=== PATIENT | female | born 1960 | race Caucasian/White ===

== ENCOUNTER 2016-12-23 11:30 | Inpatient (IN) ==
[2016-12-23] MEDS ORDERED: Sodium Chloride 0.9% 1,000 ML PRIMARY IV ONE (12:08)
[2016-12-23] MEDS ORDERED: NORMAL SALINE 10 ML SYRINGE FLUSH IVP PRN ×2 (12:08→14:55)
--- NOTE | 2016-12-23 12:14 | EKG ---
[address] [place] [address] Measurements Intervals [place] Rate: 99 P: MN: 0 QRS: -48 QRSD: 134 T: 98 QT: 382 QTc: 438 Interpretive Statements POSSIBLE ATRIAL FLUTTER/TACHYCARDIA INTRAVENTRICULAR CONDUCTION DELAY [130+ ms QRS DURATION] LEFT VENTRICULAR HYPERTROPHY AND ST-T CHANGE [VOLTAGE CRITERIA PLUS ST/T ABNORMALITY] POSSIBLE ANTERIOR MYOCARDIAL INFARCTION [30 ms Q WAVE IN V3/V4, OR R < 0.2 mV IN V4], OF INDETERMINATE AGE No previous ECG available for comparison Electronically Signed On 12-25-16 08:42:20 MST by Milton Arana MD [email or web address]
[2016-12-23 12:37] LABS: Hemoglobin [HGB] 11.9 g/dL (12.0-16.0); MEAN CORPUSCULAR HEMOGLOBIN 28.7 PG (27-31); MEAN CORPUSCULAR HGB CONC 33.1 g/dL (33-37); MEAN CORPUSCULAR VOLUME 86.7 FL (81-99); MEAN PLATELET VOLUME 11.1 FL (7.4-12.2); RED BLOOD COUNT 4.15 10^6/uL (4.20-5.40)
[2016-12-23 12:39] LABS: VENOUS PH 7.34 (7.32-7.42)
[2016-12-23 12:41] LABS: BLOOD UREA NITROGEN 31 mg/dL (7-22); BUN/CREATININE RATIO 14.09 (6-20); MAGNESIUM 1.6 mg/dL (1.6-2.4); SERUM ALBUMIN 3.5 g/dL (3.5-4.8)
[2016-12-23 12:50] LABS: BAND NEUTROPHILS % 1 % (0-10); BASOPHILS % (MANUAL) 0 % (0-1); EOSINOPHILS % (MANUAL) 1 % (0-8); MONOCYTES % (MANUAL) 7 % (0-12); NEUTROPHILS % (MANUAL) 83 % (50-80); PLATELET MORPHOLOGY COMMENT NORMAL MORPHOLOGY (NORM); RBC MORPHOLOGY COMMENT NORMAL MORPHOLOGY (NORM); WBC MORPHOLOGY COMMENT NORMAL MORPHOLOGY (NORM)
--- NOTE | 2016-12-23 13:11 | DI ---
Exam: FILM CXR Chest PA and lateral views INDICATION: Altered mental status COMPARISON: Chest radiograph 01/12/13 FINDINGS: The cardiomediastinal silhouette is within normal limits. Lungs are clear. No pleural effusions. Bony elements are within normal limits for age. No acute osseous abnormality. IMPRESSION: No acute cardiopulmonary disease. Lungs are clear. Heart size normal.
--- NOTE | 2016-12-23 13:13 | DI ---
Exam: CT HEAD Without Contrast INDICATION: Altered mental status TECHNIQUE: Multiple, contiguous 5 mm axial cuts of the brain are obtained from the posterior fossa to the cranial vault. No IV contrast is administered. COMPARISON: CT head 10/22/11 FINDINGS: No acute intracranial hemorrhage or midline shift or mass effect. No acute cortical infarct by CT exam. Caliber of the ventricles, cisterns and sulci are within normal limits. Tompkins-white differentiation is maintained. No skull fractures. The visualized portions of the paranasal sinuses are clear aside from moderate opacification right sphenoid sinus as on prior exam.. Visualized mastoid air cells are clear. IMPRESSION: 1. No acute intracranial hemorrhage or acute intracranial process. 2. Moderate opacification of the right sphenoid sinuses again noted.
[2016-12-23 13:47] LABS: BILIRUBIN,URINE NEGATIVE (NEG); CLARITY,URINE CLEAR (CLEAR); COLOR,URINE YELLOW; NITRATE,URINE NEGATIVE (NEG); OCCULT BLOOD,URINE NEGATIVE (NEG); PROTEIN,URINE NEGATIVE (NEG); UROBILINOGEN,URINE 0.2 mg/dL (0.2)
[2016-12-23] MEDS ORDERED: LIDOCAINE HCL 2 % 10 ML JELLY URO-JECT TOPICAL PRN (13:50)
[2016-12-23 13:55] LABS: GLUCOSE, URINE (UA) >=1000 mg/dL (NEG); SQUAMOUS EPITHELIAL CELL,UR RARE; URINE SAMPLE TYPE CATH SPECIMEN
[2016-12-23 13:56] LABS: BACTERIA,URINE MODERATE
[2016-12-23 13:56] LABS: AMPHETAMINE SCREEN NEGATIVE (NEG); CANNABINOID SCREEN,URINE NEGATIVE (NEG); COCAINE SCREEN NEGATIVE (NEG); METHADONE URINE SCREEN NEGATIVE (NEG); METHAMPHETAMINES SCREEN,URINE NEGATIVE (NEG); OPIATE SCREEN,URINE NEGATIVE (NEG); URINE SAMPLE TYPE CATH SPECIMEN; URINE SPECIFIC GRAVITY - MAN 1.015
[2016-12-23] MEDS ORDERED: cefTRIAXone Inj 1 GM in Sodium Chloride 0.9% 100 ML IV ONE (14:16)
[2016-12-23] MEDS ORDERED: Glucagon Inj Vial 1 MG/ML VIAL IM PRN (14:55)
[2016-12-23] MEDS ORDERED: Insulin Sliding Scale Protocol SUBCUT PRN (14:55)
[2016-12-23] MEDS ORDERED: DEXTROSE 31 GM GEL PO PRN (14:55)
[2016-12-23] MEDS ORDERED: LIDOCAINE W/ SODIUM BICARB 0.5 ML SYR SUBD PRN (14:55)
[2016-12-23] MEDS ORDERED: DEXTROSE 50%-WATER SYRINGE 50 ML SYRINGE IVP PRN (14:55)
[2016-12-23] MEDS ORDERED: Insulin Glargine SoloStar Inj 100 UNIT/ML INSULN.PEN SUBCUT SCH (16:00)
[2016-12-23] MEDS: cefTRIAXone Inj 2 GM in Sodium Chloride 0.9% 100 ML IV SCH (16:44)
[2016-12-23] MEDS: Sodium Chloride 0.9% 1,000 ML IV SCH (17:17)
[2016-12-23] MEDS: Insulin Lispro Flexpen 300 UNIT/3 ML INSULN.PEN SUBCUT SCH ×2 (17:37→21:10)
--- NOTE | 2016-12-23 19:23 | PDOC ---
Altered Mental Status HPI - General Chief Complaint: Neurological Complaints Stated Complaint: altered mental status Date Seen by Provider: 12/23/16 Time Seen by Provider: 11:40 Source: POSITIVE: Patient, Spouse Exam Limitations: POSITIVE: No limitations Nurse's Notes Reviewed & Considered: Yes - History of Present Illness Initial Comments: The patient is a 56-year-old female who was brought to the emergency room by her . states that 2 days ago the patient had a "chemical cardiac stress test ". She states that later on that day the patient "fell in the bathroom". He states that for the last 24-30 hours the patient has been "falling asleep constantly ". He states that since yesterday the patient has been "incoherent, and staying in bed all day. The patient has reportedly been in bed for over 24 hours. The patient's states that the patient has not been able to get out of bed without his help. states that patient has had "mini strokes" in the past. Patient has a history of chronic neck and back pain and has had surgical procedures for these. states the patient has not eaten in the last 48 hours. History of PTSD. History of type II diabetes mellitus on insulin. History of hypertension. Past history of prescription narcotic dependency. Body Location Affected: REPORTS: Other (Weakness, confusion,) Timing: REPORTS: Gradual Duration: >24 hours (2 days, approximately) Severity: Moderate Quality: REPORTS: Other (Patient denies any pain anywhere) Character of AMS: REPORTS: Confused, Trouble Concentrating, Decreased Responsiveness, Other (Somnolent 6) New Medications (if yes, list): No Patient Normals: REPORTS: Alert, Oriented x3 Associated Symptoms: REPORTS: Other (Generalized weakness). DENIES: Recent Illness, Fever, Chills, Chest Pain, Neck Pain, Back Pain, Difficulty Breathing, Abdominal Pain, Nausea, Vomiting, New Onset Weakness, Decreas. Ability to Stand , Decreased Ability to Walk, Multiple Falls, Off Balance, Fainting, Dizziness, Involuntary Movements, Seizure, Headache Similar Symptoms Previously: Yes ( reports 2 or 3 similar episodes in the past) Recent Care Received: REPORTS: Recently Seen, Treated by MD (Cardiac stress test as above) Any Prior Injuries Related to Current Complaint?: Yes (fell in the bathroom a day or 2 ago) - Patient Home Medications Home Medications: Home Medications Aspirin [Adult Low Dose Aspirin EC] 162 mg PO DAILY 02/19/12 Cyclobenzaprine HCl [Flexeril] 10 mg PO TID PRN 02/19/12 Famotidine 20 mg PO BID 02/19/12 Gabapentin 600 mg PO TID 02/19/12 Glipizide [Glipizide Er] 2.5 mg PO DAILY 02/19/12 Insulin Aspart Prot/Insuln Asp [Novolog Mix 70-30 Vial] 100 unit SQ .WITH MEALS SLIDING 02/19/12 Insulin Glargine,Hum.rec.anlog [Lantus] 10 unit SQ .QAM 02/19/12 Insulin Glargine,Hum.rec.anlog [Lantus] 55 unit SQ .QHS 02/19/12 Lisinopril 40 mg PO BID 02/19/12 Metformin HCl [Metformin HCl ER] 1,000 mg PO BID 02/19/12 Metoclopramide HCl [Reglan] 10 mg PO DAILY 02/19/12 Nifedipine [Nifedipine ER] 60 mg PO DAILY 02/19/12 Nitroglycerin 2.5 mg PO BID 02/19/12 Nitroglycerin [Nitrostat] 0.4 mg SL PRN PRN 02/19/12 Tramadol HCl 50 mg PO BID PRN 02/19/12 Pantoprazole Sodium [Protonix] 1 tab PO DAILY 01/14/13 traZODone Tab [Desyrel Tab] 1 - 3 tab PO HS 01/14/13 Buspirone HCl [Buspar] 10 mg PO BID 12/23/16 Clonidine HCl 0.1 mg PO DAILY 12/23/16 Furosemide [Lasix] 40 mg PO DAILY 12/23/16 Meclizine HCl [Antivert] 25 mg PO PRN 12/23/16 Ondansetron HCl [Zofran] 4 mg PO PRN 12/23/16 Potassium Chloride 10 meq PO DAILY 12/23/16 Promethazine HCl 25 mg PO BID 12/23/16 Sumatriptan Succinate [Imitrex] 25 mg PO PRN 12/23/16 - Patient Allergies Allergies/Adverse Reactions: Allergies 3 Allergy/AdvReac Type Severity Reaction Status Date / Time butalbital [From [facility]] Allergy Severe SHORTNESS Verified 12/23/16 15:48 OF BREATH cefazolin sodium Allergy Intermediate SHORTNESS Verified 12/23/16 15:48 [From Ancef in Dextrose OF BREATH (Iso-osm)] dextrose, iso-osmotic Allergy Intermediate SHORTNESS Verified 12/23/16 15:48 [From Ancef in Dextrose OF BREATH (Iso-osm)] amitriptyline Allergy NOT Verified 12/23/16 15:48 APPLICABLE amoxicillin trihydrate Allergy ANAPHLAXIS Verified 12/23/16 15:48 [From Augmentin] bupropion [From Wellbutrin] Allergy NOT Verified 12/23/16 15:48 APPLICABLE estrogens, conjugated Allergy HIVES Verified 12/23/16 15:48 [From Premarin] insulin aspart [From Novolog] Allergy NOT Verified 12/23/16 15:48 APPLICABLE Penicillins Allergy ANAPHLAXIS Verified 12/23/16 15:48 potassium clavula Allergy ANAPHLAXIS Verified 12/23/16 15:48 *RETIRED-10/26/11 [From Augmentin] omeprazole [From Prilosec] AdvReac Intermediate ACHING Verified 12/23/16 15:48 omeprazole magnesium AdvReac Intermediate ACHING Verified 12/23/16 15:48 [From Prilosec] ether [Ether] AdvReac Anaphylaxis Verified 12/23/16 15:48 prazosin AdvReac DIARRHEA Verified 12/23/16 15:48 PREPERATION H Allergy Mild ITCHING Uncoded 12/23/16 15:48 Past Medical History - heen HEENT History: Blindness, Dentures/Partials Additional HEENT History: full upper and lower, nearsighted and wears glasses. Legally blind in right eye Cardiovascular History: Hypertension, Previous [place], Other (please comment) Additional Cardiovasular History: Had an echocardiogram 2102 and had a positive bubble test for shunt. Underwent [facility] in [place] and had ? an atrial septal defect (she states a small hole in the heart that they wouldn't do anything about). Has dilated LV but doesn't know details, has been hospitalized with congestive heart failure twice in 2010, once at this hospital. She is followed by Dr. Whitman in [place]. Patient had a chemical stress test on . Respiratory History: Sleep Apnea, Home Oxygen Use, Home CPAP Use Additional Respiratory History: PULMONARY EDEMA, PULMONARY HTN, USES 2-3 LPM N/ C AT HOME. Dr. Kerr is her psychotherapist. 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 Blood Disorders: Other (please comment) Additional Blood Disorders History: patient states she has a blood disorder but not sure of the correct name or spelling. Porphyria Psychiatric History: Depression, Anxiety Disorders History of Sexually Transmitted Diseases: No Female Reproductive History: Hysterectomy Obstetrical History: Denies History Cancer History: Denies History In Past Year Been Physically Harmed or Verbally Threatened: No History of MDRO: Yes Type of MDRO: MRSA Other Type of MDRO: mrsa History of Other Communicable Diseases: No Tobacco Use: Never Smoker Alcohol Use: None In the Past 12 Months, Have Used or Abuse Any Substance: None Previous Surgical History: No Type / Date of Surgery: NECK AND BACK FUSION, CHOLECYSTECTOMY, LAPAROSCOPIC SURGERIES, APPY, L KNEE, TONSILLECTOMY, EYE SURGERY, hysterectomy and BSO, 2 surgeries on left breast to remove lump that was "pre-cancerous--bleeding from mild ducts" Anesthesia Reactions: No Malignant Hyperthermia: No Significant Family History: Cancer Past Medical History Reviewed: Reviewed - No Changes ROS - Limitations ROS Limitations: Clinical Condition (Somnolent, disoriented to time, date and president) Constitution: REPORTS: Weakness (Generalized) Cardiovascular: REPORTS: Denies Cardiac Symptoms Respiratory: REPORTS: Denies Resp Symptoms Neurological: REPORTS: Confusion Gastrointestinal: REPORTS: Denies GI Symptoms Endocrine: REPORTS: Denies Symptoms Musculoskeletal: REPORTS: Denies MS Symptoms Genitourinary: REPORTS: Denies Symptoms Eyes: REPORTS: Denies Symptoms ENT: REPORTS: Denies Symptoms Skin: REPORTS: Denies Skin Symptoms Lympathic: REPORTS: Denies Lympathic Symptoms Immunologic: POSITIVE: Denies Symptoms Psychiatric: POSITIVE: Confusion Altered Mental Physical Exam - General Appearance General Appearance: POSITIVE: No Acute Distress, No Evidence of Trauma, Lethargic. NEGATIVE: Anxious, Cervical Spine Protection, Mild Distress, Moderate Distress, Obtunded, Severe Distress, Spinal Immobilization, Unresponsive, Uncooperative - HEENT HEENT: POSITIVE: Head Inspection Nml, Eyes Inspection Nml, Ears Inspection Nml, Nose Inspection Nml, Oral/Dental Inspect. Nml, Pharynx Inspect. Nml, PERRL, EOMI - Pupil Size Pupil Size: 4 mm: Bilateral (PERRLA) - Neuro/Psych Neurological: POSITIVE: Confusion, Weakness (Generalized weakness), Other ( Somnolent) Cranial Nerves: POSITIVE: Normal As Tested, No Evidence of Acute CVA Cerebellar: POSITIVE: Normal As Tested Peripheral Exam: POSITIVE: No Motor Deficits, No Sensory Deficits, Reflexes Normal - Neck Neck: POSITIVE: Supple, Non Tender - Respiratory Respiratory: POSITIVE: No Respiratory Distress, Breath Sounds Normal - Cardiovascular CVS: POSITIVE: Regular Rate and Rhythm, Heart Sounds Normal Peripheral Pulses: Radial (R): 2+, Radial (L): 2+ - Abdomen Abdomen: Soft: (All Quadrants), Normal Bowel Sounds: (All Quadrants), Denies Tenderness: (All Quadrants), No Splenomegaly: (All Quadrants), No Hepatomegaly: (All Quadrants), No Guarding: (All Quadrants), No Rebound: (All Quadrants), No Palpable Pulse: (All Quadrants), No Palpabale Mass: (All Quadrants), No Distention: (All Quadrants), No Rigidity: (All Quadrants) - Skin Skin: POSITIVE: Normal for Race, No Rash, Warm, Dry, Other (Lips dry and chapped ) - Extremities Extremity: Non-Tender: (All Extremities), Normal ROM: (All Extremities), Normal Inspection: (All Extremities) Altered Mental Status - Results Reviewed By Me Xrays/CTs/US Reviewed: Yes (chest x-ray normal. CT scan head without contrast normal) Discussed with Radiologist: Yes Lab Results Reviewed by Me: Yes (glucose 493; total creatinine kinase 5670; BUN 31, creatinine 2.2, toxicolo) CBC and BMP: 12/23/16 12:33 12/23/16 12:33 EKG Interpreted/Reviewed By Me:: Yes (rate 99/m; interventricular conduction delay) EKG Interpretation:: POSITIVE: Normal Sinus Rhythm, Abnormal EKG. NEGATIVE: Normal Rate (99/m), Normal Intervals (Interventricular conduction delay) - Patient's Progress Pain Medication Addressed: POSITIVE: Not Applicable School/Work Release Addressed: POSITIVE: Not Applicable Re-Examine Time:: 13:45 Re-Examine Comment: [place] catheter placed and patient hydrated with about 1500 mL in the emergency room. 2 blood cultures were drawn. Her condition discussed with the patient's . It is felt that the patient is dehydrated and has a urinary tract infection. Acute renal failure. No occult blood on UA testing; elevated total creatinine kinase suggests rhabdomyolysis. Patient given a gram of Rocephin IV in the emergency room. Lactate normal. No acidosis. Diabetes in poor control. Patient may also have overdosed on a benzodiazepine. Status: POSITIVE: Unchanged, Re-Examined Antibiotics Given: Yes (Rocephin, 1 g IV after blood and urine cultures.) - Consult Consult (If Yes, Name of Consulting MD & Time Called): Yes (, hospitalist , [id number]) Consulting MD will see pt:: POSITIVE: [facility] Admit Counseled: POSITIVE: Family (), RE: Lab Results, RE: Radiology Results, RE: DX, RE: Need for F/U Patient Care Time - Estimated PCT Patient Care Time (In Minutes): 70 Vital Signs - Recent Vital Signs Vital Signs: Vital Signs (Last 8 hours) Temp Pulse Pulse Resp BP Pulse Ox 12/23/16 14:30 98 18 12/23/16 12:52 97.7 F 101 H 18 135/65 92 - VS Reviewed Vital Signs Reviewed: Yes Discharge Clinical Impression: Renal failure, acute, Dehydration, Confusion, Diabetes mellitus, Urinary tract infection, Rhabdomyolysis Discharge Disposition: Admit to Inpatient Condition: Fair Date Decision to Admit to Inpatient: 12/23/16 Time Decision to Admit to Inpatient: 14:00
--- NOTE | 2016-12-23 20:35 | DI ---
EXAM: US Abdomen Complete CLINICAL HISTORY: Physician Notes: Acute renal failure TECHNIQUE: Real-time ultrasound of the abdomen (complete) with image documentation. COMPARISON: No relevant prior studies available. FINDINGS: Limitations: Limited exam as the patient was unresponsive and could not follow commands. Liver: Liver is 16 cm length. Parenchyma appears slightly echogenic on some images. No intrahepatic bile duct dilation. Gallbladder: Gallbladder surgically absent. Common bile duct: Common bile duct normal caliber at 5 mm. No stones. No dilation. Pancreas: Pancreas may be slightly echogenic. Kidneys: Right kidney 10.3 cm length. Left kidney 10.1 cm length. Echogenic lesion in the right kidney cortex which is subcentimeter and nonvascular. Spleen: Spleen 10.7 cm length. Aorta: Visualized aorta unremarkable with limited characterization of the midportion due to bowel gas. Inferior vena cava: IVC unremarkable or visualized. IMPRESSION: 1. No evidence for hydronephrosis. 2. Echogenic subcentimeter lesion of the right kidney cortex, nonspecific and possibly related to an angiomyolipoma. I would recommend nonemergent renal protocol imaging with CT to exclude suspicious features. 3. Hepatic steatosis. Also questionable fatty infiltration of the pancreas.
--- NOTE | 2016-12-23 21:06 | PDOC ---
HPI - History of Present Illness History of Present Illness: This is a very nice 56-year-old female with past medical history significant for diabetes on insulin, chronic back pain. She was brought to the emergency room by her because 2 days ago she had a stress test in [place] later that day she fell in the bathroom and for the last 24 hours patient has been falling asleep and hard to arouse she also appears confused and incoherent and stayed in bed all day and unable to get out of bed without his help also had neck and back pain for which she had surgeries for also she has not eaten in the last 48 hours has a history of PTSD and hypertension as well also has a history of prescription narcotic addiction. She appears somnolent but she is awake and answers question upper appropriately but is very slow in answering them she is positive for benzos and the urine but she denies taking them. She was found to have a sugar around 400 also acute renal failure and rhabdomyolysis with elevated CK she denies falling or being on the floor Denies chest pain Past Medical History Medical History: Hypertension, diabetes, chronic neck and back pain, history of double drug prescription drug addiction. Surgical History: Neck and back pain Tobacco Use: Never Smoker In the Past 12 Months, Have Used or Abuse Any of the Following Substance: None, Tranquilizer/Benzodiazepine Medication / Allergies Home Medications: Home Medications Medication Instructions Recorded Confirmed Type Aspirin [Adult Low Dose Aspirin EC] 162 mg PO DAILY 02/19/12 12/23/16 History Cyclobenzaprine HCl [Flexeril] 10 mg PO TID PRN 02/19/12 12/23/16 History Famotidine 20 mg PO BID 02/19/12 12/23/16 History Gabapentin 600 mg PO TID 02/19/12 12/23/16 History Glipizide [Glipizide Er] 2.5 mg PO DAILY 02/19/12 12/23/16 History Insulin Aspart Prot/Insuln Asp 100 unit SQ .WITH MEALS SLIDING 02/19/12 History [Novolog Mix 70-30 Vial] Insulin Glargine,Hum.rec.anlog 10 unit SQ .QAM 02/19/12 12/23/16 History [Lantus] Insulin Glargine,Hum.rec.anlog 55 unit SQ .QHS 02/19/12 12/23/16 History [Lantus] Lisinopril 40 mg PO BID 02/19/12 12/23/16 History Metformin HCl [Metformin HCl ER] 1,000 mg PO BID 02/19/12 12/23/16 History Metoclopramide HCl [Reglan] 10 mg PO DAILY 02/19/12 12/23/16 History Nifedipine [Nifedipine ER] 60 mg PO DAILY 02/19/12 12/23/16 History Nitroglycerin 2.5 mg PO BID 02/19/12 12/23/16 History Nitroglycerin [Nitrostat] 0.4 mg SL PRN PRN 02/19/12 12/23/16 History Tramadol HCl 50 mg PO BID PRN 02/19/12 12/23/16 History Pantoprazole Sodium [Protonix] 1 tab PO DAILY 01/14/13 12/23/16 History traZODone Tab [Desyrel Tab] 1 - 3 tab PO HS 01/14/13 12/23/16 History Buspirone HCl [Buspar] 10 mg PO BID 12/23/16 12/23/16 History Clonidine HCl 0.1 mg PO DAILY 12/23/16 12/23/16 History Furosemide [Lasix] 40 mg PO DAILY 12/23/16 12/23/16 History Meclizine HCl [Antivert] 25 mg PO PRN 12/23/16 12/23/16 History Ondansetron HCl [Zofran] 4 mg PO PRN 12/23/16 12/23/16 History Potassium Chloride 10 meq PO DAILY 12/23/16 12/23/16 History Promethazine HCl 25 mg PO BID 12/23/16 12/23/16 History Sumatriptan Succinate [Imitrex] 25 mg PO PRN 12/23/16 12/23/16 History Allergies/Adverse Reactions: Allergies 3 Allergy/AdvReac Type Severity Reaction Status Date / Time butalbital [From [facility]] Allergy Severe SHORTNESS Verified 12/23/16 15:48 OF BREATH cefazolin sodium Allergy Intermediate SHORTNESS Verified 12/23/16 15:48 [From Ancef in Dextrose OF BREATH (Iso-osm)] dextrose, iso-osmotic Allergy Intermediate SHORTNESS Verified 12/23/16 15:48 [From Ancef in Dextrose OF BREATH (Iso-osm)] amitriptyline Allergy NOT Verified 12/23/16 15:48 APPLICABLE amoxicillin trihydrate Allergy ANAPHLAXIS Verified 12/23/16 15:48 [From Augmentin] bupropion [From Wellbutrin] Allergy NOT Verified 12/23/16 15:48 APPLICABLE estrogens, conjugated Allergy HIVES Verified 12/23/16 15:48 [From Premarin] insulin aspart [From Novolog] Allergy NOT Verified 12/23/16 15:48 APPLICABLE Penicillins Allergy ANAPHLAXIS Verified 12/23/16 15:48 potassium clavula Allergy ANAPHLAXIS Verified 12/23/16 15:48 *RETIRED-10/26/11 [From Augmentin] omeprazole [From Prilosec] AdvReac Intermediate ACHING Verified 12/23/16 15:48 omeprazole magnesium AdvReac Intermediate ACHING Verified 12/23/16 15:48 [From Prilosec] ether [Ether] AdvReac Anaphylaxis Verified 12/23/16 15:48 prazosin AdvReac DIARRHEA Verified 12/23/16 15:48 PREPERATION H Allergy Mild ITCHING Uncoded 12/23/16 15:48 Review of Systems - Review of Systems All Systems: Reviewed & No Additional Complaints Except as Stated - Ear/Nose Exam Ear/Nose Exam: DENIES: Negative System Review, Decreased Hearing, Tinnitus, Otalgia, Sinus Pain, Rhinorrhea, Congestion, Anosmia, Epistaxis, Other, See HPI - Mouth/Throat Mouth/Throat Exam: DENIES: Negative System Review, Dental Problems, Oral Ulcers , Sore Throat, Hoarseness, Dysphagia, Dental Pain, Other, See HPI - Cardiovascular Cardiovascular: DENIES: Negative System Review, Chest Pain, Edema, Syncope, Palpitations, Orthopnea, Paroxysmal Nocturnal Dyspnea, Other, See HPI - Genitourinary Genitourinary: DENIES: Negative System Review, Pain, Burning, Hematuria, Incontinence, Urgency, Hesitant Stream, Decreased Stream, Nocutria, Discharge, Sexual Dysfunction, Other, See HPI - Neurological Neurologic: REPORTS: Weakness. DENIES: Tremors, Seizures, Head Trauma, Confusion, Memory Loss - Psychiatric Psychiatric: REPORTS: Depressed Exam - Vitals Vital Signs: Vital Signs Temperature 99.6 F Temperature Source Oral Pulse Rate [Apical] 97 Pulse Rate [Pulse Oximeter] 97 Respiratory Rate 12 Blood Pressure [Right Arm] 130/73 Blood Pressure [Left Arm] 140/60 Pulse Ox 94 Oxygen Flow Rate 3 Oxygen Delivery Method Nasal Cannula Height 5 ft 6 in Weight 200 lb - General General Appearance: Cooperative, Mild Distress - Head Head Exam: Normal Inspection, Normocephalic, Atraumatic - Eye Eye Exam: POSITIVE: Normal Appearance, PERRL, EOMI, No Scleral Icterus - ENT ENT Exam: POSITIVE: Mucous Membranes Dry - Neck Neck Exam: Normal Inspection, Full ROM, No Tenderness, No Lymphadenopathy, No Thyromegaly, JVP is not Raised - Respiratory Respiratory Exam: POSITIVE: Clear to Auscultation - Bilaterally, Breathing Non Labored, Normal To Percussion, Normal to Percussion and Palpation - Cardiovascular Cardiovascular Exam: POSITIVE: RRR, No Murmur, No Clicks, No Gallops, No Rubs, PMI Non-Displaced - GI/Abdominal GI/Abdominal Exam: POSITIVE: Normal Bowel Sounds, Non Tender, Non Distended, Soft, No Masses, No Hepatomegaly, No Splenomegaly, No Organomegaly - Rectal Rectal Exam: POSITIVE: Deferred - External Exam: POSITIVE: Deferred Exam: POSITIVE: Deferred - Extremities Extremities Exam: POSITIVE: Normal Inspection, No Clubbing Present, No Edema Present - Neurological Neurological Exam: POSITIVE: Alert, No Facial Droop, Speech Intact / Clear, Moves All Extremities Equally - Psychiatric Psychiatric Exam: POSITIVE: Depressed Results - Labs CBC and BMP: 12/23/16 12:33 12/23/16 12:33 Assessment and Plan - Patient Problems (1) Confusion Current Visit: Yes Status: Acute Code(s): R41.0 - Disorientation, unspecified (2) Dehydration Current Visit: Yes Status: Acute Code(s): E86.0 - Dehydration (3) Diabetes mellitus Current Visit: Yes Status: Acute Code(s): E11.9 - Type 2 diabetes mellitus without complications (4) Renal failure, acute Current Visit: Yes Status: Acute Code(s): N17.9 - Acute kidney failure, unspecified (5) Rhabdomyolysis Current Visit: Yes Status: Acute Code(s): M62.82 - Rhabdomyolysis (6) Urinary tract infection Current Visit: Yes Status: Acute Code(s): N39.0 - Urinary tract infection, site not specified - Assessment / Plan Additional Assessment/Plan Details: #1 lethargy and somnolence -most likely multifactorial s UTI patient has been on benzos she denies it but they are in the urine also takes trazodone muscle relaxers she is not sure what she took and when #2 rhabdo etiology unknown she did fall in the bathroom either not she was down for some time she does deny it normal saline 150 an hour labs are being repeated after 3 hours we will see what her creatinine and total CK levels are depending on these further decision making #3 UTI patient was started on ceftriaxone 2 g renal ultrasound did not reveal any hydronephrosis or blockage #4 uncontrolled diabetes I will give her half of her home long-acting insulin since she has not eaten and cover her for 100 sugar with Humalog #5 dehydration continue IV fluids
[2016-12-23] MEDS: Insulin Glargine SoloStar Inj 100 UNIT/ML INSULN.PEN SUBCUT ONE ×2 (21:10→21:22)
[2016-12-23 21:11] LABS: BUN/CREATININE RATIO 17.85 (6-20); SERUM ALBUMIN 3.2 g/dL (3.5-4.8)
[2016-12-23] MEDS ORDERED: Insulin Glargine SoloStar Inj 100 UNIT/ML INSULN.PEN SUBCUT ONE (21:17)
[2016-12-23] MEDS: NITROGLYCERIN SR 2.5 MG CAPSULE PO SCH (21:21)
[2016-12-23] MEDS: busPIRone HCL 5 MG TABLET PO SCH (21:22)
[2016-12-23] MEDS ORDERED: SODIUM CHLORIDE 0.45% IV ONE ×2 (21:31)
[2016-12-23] MEDS ORDERED: SODIUM BICARBONATE 50 MEQ IV ONE ×2 (21:31)
[2016-12-24] MEDS: Sodium Chloride 0.9% 1,000 ML IV SCH ×3 (01:56→15:46)
[2016-12-24 06:48] LABS: Hematocrit [HCT] 33.1 % (37.0-47.0); Hemoglobin [HGB] 10.8 g/dL (12.0-16.0); MEAN CORPUSCULAR HEMOGLOBIN 28.5 PG (27-31); MEAN CORPUSCULAR HGB CONC 32.6 g/dL (33-37); MEAN CORPUSCULAR VOLUME 87.3 FL (81-99); MEAN PLATELET VOLUME 10.7 FL (7.4-12.2); RED BLOOD COUNT 3.79 10^6/uL (4.20-5.40)
[2016-12-24 06:58] LABS: BLOOD UREA NITROGEN 20 mg/dL (7-22); BUN/CREATININE RATIO 22.22 (6-20); SERUM ALBUMIN 3.2 g/dL (3.5-4.8)
[2016-12-24 07:01] LABS: PLATELET MORPHOLOGY COMMENT NORMAL MORPHOLOGY (NORM); RBC MORPHOLOGY COMMENT NORMAL MORPHOLOGY (NORM); WBC MORPHOLOGY COMMENT NORMAL MORPHOLOGY (NORM)
[2016-12-24 07:02] LABS: BAND NEUTROPHILS % 0 % (0-10); BASOPHILS % (MANUAL) 0 % (0-1); EOSINOPHILS % (MANUAL) 4 % (0-8); MONOCYTES % (MANUAL) 4 % (0-12); NEUTROPHILS % (MANUAL) 72 % (50-80)
[2016-12-24] MEDS: Insulin Lispro Flexpen 300 UNIT/3 ML INSULN.PEN SUBCUT SCH ×4 (07:53→21:05)
[2016-12-24] MEDS ORDERED: PANTOPRAZOLE 40 MG TABLET PO SCH (09:00)
[2016-12-24] MEDS: Pantoprazole Inj 40 MG in Normal Saline Flush 10 ML IVP SCH (09:04)
[2016-12-24] MEDS: ASPIRIN EC 81 MG TABLET PO SCH (09:05)
[2016-12-24] MEDS: CloNIDine Tab 0.1 MG TABLET PO SCH (09:05)
[2016-12-24] MEDS: NIFEdipine 30 MG ER 24H TABLET PO SCH (09:05)
[2016-12-24] MEDS: busPIRone HCL 5 MG TABLET PO SCH ×2 (09:05→21:08)
[2016-12-24] MEDS: NITROGLYCERIN SR 2.5 MG CAPSULE PO SCH ×2 (09:05→21:06)
--- NOTE | 2016-12-24 12:28 | PDOC(PROG) ---
Interval History: Patient is doing great. Fully awake and oriented back to her normal self no chest pain nausea or vomiting she is hungry Objective : Data - Labs CBC and BMP: 12/24/16 06:35 12/24/16 06:35 Objective : Exam - Head Head Exam: Normal Inspection, Normocephalic - Eye Eye Exam: Normal Appearance, PERRL, EOMI, No Scleral Icterus - Neck Neck Exam: Normal Inspection, Full ROM, No Tenderness - Respiratory Respiratory Exam: Clear to Auscultation - Bilaterally, Breathing Non Labored, Normal To Percussion, Normal to Percussion and Palpation - Cardiovascular Cardiovascular Exam: RRR, No Murmur, No Clicks, No Gallops, No Rubs, PMI Non- Displaced - GI/Abdominal GI/Abdominal Exam: Normal Bowel Sounds, Non Tender, Non Distended, Soft, No Masses, No Hepatomegaly, No Splenomegaly, No Organomegaly - Extremities Extremities Exam: No Clubbing Present Assessment and Plan - Patient Problems (1) Confusion Current Visit: Yes Status: Acute Code(s): R41.0 - Disorientation, unspecified (2) Dehydration Current Visit: Yes Status: Acute Code(s): E86.0 - Dehydration (3) Diabetes mellitus Current Visit: Yes Status: Acute Code(s): E11.9 - Type 2 diabetes mellitus without complications (4) Renal failure, acute Current Visit: Yes Status: Acute Code(s): N17.9 - Acute kidney failure, unspecified (5) Rhabdomyolysis Current Visit: Yes Status: Acute Code(s): M62.82 - Rhabdomyolysis (6) Urinary tract infection Current Visit: Yes Status: Acute Code(s): N39.0 - Urinary tract infection, site not specified - Assessment / Plan Additional Assessment/Plan Details: #1 UTI pulmonary reports gram-positive cocci continue ceftriaxone white count is normalized patient is improved will await final speciation #2 acute kidney injurynow resolved stress decrease fluids to 75 an hour #3 rhabdomyolysis initial CK 6000 range now the 2700. Urine output decrease normal saline at 75 #4 diabetes sugars are okay now she was given half of her dose of Lantus last night 20 units blood sugars today but she is now hungry she will eat the full meals today if that will be the case she will be getting her usual home dose of 55 units. Disposition patient really wanted to go home today I told him probably need to watch things for another day and short acting skull on the right direction I'll also consult with Dr. Summers nephrology which agreed with my analysis
[2016-12-24] MEDS: cefTRIAXone Inj 2 GM in Sodium Chloride 0.9% 100 ML IV SCH (14:15)
[2016-12-24] MEDS: Sodium Chloride 0.9% 1,000 ML PRIMARY IV SCH (15:46)
[2016-12-24] MEDS: METOPROLOL SUCCINATE 50 MG SR 24H TABLET PO SCH (18:08)
[2016-12-24] MEDS: Apixaban 5 MG TABLET PO SCH (22:22)
--- NOTE | 2016-12-24 23:35 | DI ---
EXAM: US Duplex Left Lower Extremity Veins CLINICAL HISTORY: Physician Notes: Tech Comments: Left arm. TECHNIQUE: Real-time ultrasound scan of the veins of the left lower extremity with color Doppler flow, spectral waveform analysis and compression. COMPARISON: No relevant prior studies available. FINDINGS: Deep veins: Unremarkable. No DVT in the visualized common femoral, femoral, proximal deep femoral or popliteal veins. The veins are compressible with normal color flow and augmentation. Superficial veins: Unremarkable. No thrombus in the visualized great saphenous vein. Soft tissues: No acute findings. No popliteal cyst. IMPRESSION: Normal left lower extremity duplex venous ultrasound. Critical Value Communications 12/24/16 23:13 Call From [facility] on 12/24 23:08 (-07:00)
[2016-12-25] MEDS: Sodium Chloride 0.9% 1,000 ML PRIMARY IV SCH (05:17)
[2016-12-25 06:31] LABS: BLOOD UREA NITROGEN 11 mg/dL (7-22); BUN/CREATININE RATIO 18.33 (6-20); SERUM ALBUMIN 2.9 g/dL (3.5-4.8)
[2016-12-25 08:06] VITALS: BP 125/56; RESP 19; TEMP 97.9; O2SAT 98
[2016-12-25] MEDS: Insulin Lispro Flexpen 300 UNIT/3 ML INSULN.PEN SUBCUT SCH (08:10)
[2016-12-25] MEDS: Pantoprazole Inj 40 MG in Normal Saline Flush 10 ML IVP SCH (08:16)
[2016-12-25] MEDS: ASPIRIN EC 81 MG TABLET PO SCH (08:17)
[2016-12-25] MEDS: Apixaban 5 MG TABLET PO SCH (08:18)
[2016-12-25] MEDS: NIFEdipine 30 MG ER 24H TABLET PO SCH (08:18)
[2016-12-25] MEDS: CloNIDine Tab 0.1 MG TABLET PO SCH (08:19)
[2016-12-25] MEDS: METOPROLOL SUCCINATE 50 MG SR 24H TABLET PO SCH (08:19)
[2016-12-25] MEDS: NITROGLYCERIN SR 2.5 MG CAPSULE PO SCH (08:19)
[2016-12-25] MEDS: busPIRone HCL 5 MG TABLET PO SCH (08:20)
[2016-12-25] MEDS ORDERED: LISINOPRIL 20 MG TABLET PO SCH (09:00)
[2016-12-25] MEDS ORDERED: FUROSEMIDE 40 MG TABLET PO SCH (09:00)
--- NOTE | 2016-12-25 10:51 | DCSUMMARY ---
Hospitalization Summary Primary Diagnosis:: UTI Secondary Diagnosis:: Rhabdomyolysis Hospital Course: Final Discharge Diagnosis: Current Visit Problems Problem Status Onset Code Renal failure, acute Acute N17.9 Dehydration Acute E86.0 Confusion Acute R41.0 Diabetes mellitus Acute E11.9 Urinary tract infection Acute N39.0 Rhabdomyolysis Acute M62.82 Diagnostic Data, Laboratory Data, and Procedures of Signifigance: Laboratory Results 12/23/16 12/23/16 12/23/16 Range/Units 12:14 12:31 12:33 WBC (4.8-10.8) 10^3/uL RBC (4.20-5.40) 10^6/uL Hgb (12.0-16.0) g/dL Hct (37.0-47.0) % MCV (81-99) FL MCH (27-31) PG MCHC (33-37) g/dL RDW Std Deviation (39-50) fL RDW Coeff of Eugenia (11.5-14.5) % Plt Count (140-350) 10*3/uL MPV (7.4-12.2) FL Neutrophils % (Manual) (50-80) % Band Neutrophils % (0-10) % Lymphocytes % (Manual) (10-50) % Monocytes % (Manual) (0-12) % Eosinophils % (Manual) (0-8) % Basophils % (Manual) (0-1) % Metamyelocytes % Myelocytes % Promyelocytes % Blast Cells WBC Morphology Comment (NORM) Plt Morphology Comment (NORM) RBC Morph Comment (NORM) VBG pH 7.34 (7.32-7.42) VBG pCO2 50 (45-55) mmHg VBG HCO3 27 H (22-26) mmol/L VBG Base Excess 2 (-2-2) MMOL/L Sodium (135-145) meq/L Potassium (3.8-5.2) meq/L Chloride (98-112) meq/L Carbon Dioxide (23-33) meq/L Anion Gap (5-20) BUN (7-22) mg/dL Creatinine (0.50-1.20) mg/dL Estimated GFR (>60 ml/min/1.73m(2)) BUN/Creatinine Ratio (6-20) Glucose (78-110) mg/dL Calculated Osmolality (267-292) mOsm/kg Lactic Acid (0.70-2.10) MMOL/L Calcium (8.7-10.7) mg/dL Magnesium (1.6-2.4) mg/dL Total Bilirubin (0.3-1.2) mg/dL AST (8-39) IU/L ALT (9-52) IU/L Alkaline Phosphatase (38-126) IU/L Total Creatine Kinase (30-136) IU/L C-Reactive Protein (0.0-0.9) mg/dL Total Protein (6.1-8.0) g/dL Albumin (3.5-4.8) g/dL Globulin (2.50-4.10) g/dL Albumin/Globulin Ratio (1.3-2.0) mg/g TSH 0.347 (0.2700-4.2000) uIU/mL Ur Collection Type Cath specimen Urine Color Yellow Urine Clarity Clear (CLEAR) Urine pH 5.0 (5.0-8.5) Ur Specific Parker 1.015 (1.005-1.030) U Specif Grav (Refrac) Urine Protein Negative (NEG) mg/dl Urine Glucose (UA) >=1000 (NEG) mg/dL Urine Ketones Negative (NEG) Urine Occult Blood Negative (NEG) Urine Nitrate Negative (NEG) Urine Bilirubin Negative (NEG) Urine Urobilinogen 0.2 (0.2) mg/dL Ur Leukocyte Esterase Trace (NEG) Urine RBC 2-4 (NONE) /hpf Urine WBC 10-20 (NONE) Ur Squamous Epith Cells Rare (NONE) Ur Renal Epithelial Cell None (NONE) Urine Crystals None Urine Bacteria Moderate (NONE) Urine Casts None Urine Mucus None (NONE) Urine Trichomonas None (NONE) Urine Yeast None (NONE) Urine Opiates Screen (NEG) Ur Buprenorphine (NEG) Ur Oxycodone Screen (NEG) Urine Methadone Screen (NEG) Ur Propoxyphene Screen (NEG) Barbiturate Screen (NEG) U Tricyclic Antidepress (NEG) Phencyclidine Screen (NEG) Amphetamines Screen (NEG) U Methamphetamines Scrn (NEG) Benzodiazepines Screen (NEG) Cocaine Screen (NEG) U Marijuana (THC) Screen (NEG) Serum Alcohol (0-10) mg/dL 12/23/16 12/23/16 12/23/16 Range/Units 12:33 12:33 12:33 WBC 14.31 H (4.8-10.8) 10^3/uL RBC 4.15 L (4.20-5.40) 10^6/uL Hgb 11.9 L (12.0-16.0) g/dL Hct 36.0 L (37.0-47.0) % MCV 86.7 (81-99) FL MCH 28.7 (27-31) PG MCHC 33.1 (33-37) g/dL RDW Std Deviation 42.0 (39-50) fL RDW Coeff of Eugenia 13.6 (11.5-14.5) % Plt Count 233 (140-350) 10*3/uL MPV 11.1 (7.4-12.2) FL Neutrophils % (Manual) 83 H (50-80) % Band Neutrophils % 1 (0-10) % Lymphocytes % (Manual) 8 L (10-50) % Monocytes % (Manual) 7 (0-12) % Eosinophils % (Manual) 1 (0-8) % Basophils % (Manual) 0 (0-1) % Metamyelocytes % Not Reportable Myelocytes % Not Reportable Promyelocytes % Not Reportable Blast Cells Not Reportable WBC Morphology Comment Normal morphology (NORM) Plt Morphology Comment Normal morphology (NORM) RBC Morph Comment Normal morphology (NORM) VBG pH (7.32-7.42) VBG pCO2 (45-55) mmHg VBG HCO3 (22-26) mmol/L VBG Base Excess (-2-2) MMOL/L Sodium 132 L (135-145) meq/L Potassium 4.4 (3.8-5.2) meq/L Chloride 91 L (98-112) meq/L Carbon Dioxide 30 (23-33) meq/L Anion Gap 11 (5-20) BUN 31 H (7-22) mg/dL Creatinine 2.2 H (0.50-1.20) mg/dL Estimated GFR 23 (>60 ml/min/1.73m(2)) BUN/Creatinine Ratio 14.09 (6-20) Glucose 493 H* (78-110) mg/dL Calculated Osmolality 302.0 H (267-292) mOsm/kg Lactic Acid 1.5 (0.70-2.10) MMOL/L Calcium 8.4 L (8.7-10.7) mg/dL Magnesium 1.6 (1.6-2.4) mg/dL Total Bilirubin 0.7 (0.3-1.2) mg/dL AST 109 H (8-39) IU/L ALT 45 (9-52) IU/L Alkaline Phosphatase 131 H (38-126) IU/L Total Creatine Kinase (30-136) IU/L C-Reactive Protein (0.0-0.9) mg/dL Total Protein 6.5 (6.1-8.0) g/dL Albumin 3.5 (3.5-4.8) g/dL Globulin 3.0 (2.50-4.10) g/dL Albumin/Globulin Ratio 1.10 L (1.3-2.0) mg/g TSH (0.2700-4.2000) uIU/mL Ur Collection Type Urine Color Urine Clarity (CLEAR) Urine pH (5.0-8.5) Ur Specific Parker (1.005-1.030) U Specif Grav (Refrac) Urine Protein (NEG) mg/dl Urine Glucose (UA) (NEG) mg/dL Urine Ketones (NEG) Urine Occult Blood (NEG) Urine Nitrate (NEG) Urine Bilirubin (NEG) Urine Urobilinogen (0.2) mg/dL Ur Leukocyte Esterase (NEG) Urine RBC (NONE) /hpf Urine WBC (NONE) Ur Squamous Epith Cells (NONE) Ur Renal Epithelial Cell (NONE) Urine Crystals Urine Bacteria (NONE) Urine Casts Urine Mucus (NONE) Urine Trichomonas (NONE) Urine Yeast (NONE) Urine Opiates Screen (NEG) Ur Buprenorphine (NEG) Ur Oxycodone Screen (NEG) Urine Methadone Screen (NEG) Ur Propoxyphene Screen (NEG) Barbiturate Screen (NEG) U Tricyclic Antidepress (NEG) Phencyclidine Screen (NEG) Amphetamines Screen (NEG) U Methamphetamines Scrn (NEG) Benzodiazepines Screen (NEG) Cocaine Screen (NEG) U Marijuana (THC) Screen (NEG) Serum Alcohol < 10 (0-10) mg/dL 12/23/16 12/23/16 12/23/16 Range/Units 12:33 13:13 20:57 WBC (4.8-10.8) 10^3/uL RBC (4.20-5.40) 10^6/uL Hgb (12.0-16.0) g/dL Hct (37.0-47.0) % MCV (81-99) FL MCH (27-31) PG MCHC (33-37) g/dL RDW Std Deviation (39-50) fL RDW Coeff of Eugenia (11.5-14.5) % Plt Count (140-350) 10*3/uL MPV (7.4-12.2) FL Neutrophils % (Manual) (50-80) % Band Neutrophils % (0-10) % Lymphocytes % (Manual) (10-50) % Monocytes % (Manual) (0-12) % Eosinophils % (Manual) (0-8) % Basophils % (Manual) (0-1) % Metamyelocytes % Myelocytes % Promyelocytes % Blast Cells WBC Morphology Comment (NORM) Plt Morphology Comment (NORM) RBC Morph Comment (NORM) VBG pH (7.32-7.42) VBG pCO2 (45-55) mmHg VBG HCO3 (22-26) mmol/L VBG Base Excess (-2-2) MMOL/L Sodium 137 (135-145) meq/L Potassium 3.9 (3.8-5.2) meq/L Chloride 99 (98-112) meq/L Carbon Dioxide 29 (23-33) meq/L Anion Gap 9 (5-20) BUN 25 H (7-22) mg/dL Creatinine 1.4 H (0.50-1.20) mg/dL Estimated GFR 39 (>60 ml/min/1.73m(2)) BUN/Creatinine Ratio 17.85 (6-20) Glucose 314 H (78-110) mg/dL Calculated Osmolality 299.0 H (267-292) mOsm/kg Lactic Acid (0.70-2.10) MMOL/L Calcium 8.0 L (8.7-10.7) mg/dL Magnesium (1.6-2.4) mg/dL Total Bilirubin 0.5 (0.3-1.2) mg/dL AST 84 H (8-39) IU/L ALT 45 (9-52) IU/L Alkaline Phosphatase 114 (38-126) IU/L Total Creatine Kinase 5672 H 4107 H (30-136) IU/L C-Reactive Protein 6.3 H (0.0-0.9) mg/dL Total Protein 6.1 (6.1-8.0) g/dL Albumin 3.2 L (3.5-4.8) g/dL Globulin 2.9 (2.50-4.10) g/dL Albumin/Globulin Ratio 1.10 L (1.3-2.0) mg/g TSH (0.2700-4.2000) uIU/mL Ur Collection Type Cath specimen Urine Color Urine Clarity (CLEAR) Urine pH (5.0-8.5) Ur Specific Parker (1.005-1.030) U Specif Grav (Refrac) 1.015 Urine Protein (NEG) mg/dl Urine Glucose (UA) (NEG) mg/dL Urine Ketones (NEG) Urine Occult Blood (NEG) Urine Nitrate (NEG) Urine Bilirubin (NEG) Urine Urobilinogen (0.2) mg/dL Ur Leukocyte Esterase (NEG) Urine RBC (NONE) /hpf Urine WBC (NONE) Ur Squamous Epith Cells (NONE) Ur Renal Epithelial Cell (NONE) Urine Crystals Urine Bacteria (NONE) Urine Casts Urine Mucus (NONE) Urine Trichomonas (NONE) Urine Yeast (NONE) Urine Opiates Screen Negative (NEG) Ur Buprenorphine Negative (NEG) Ur Oxycodone Screen Negative (NEG) Urine Methadone Screen Negative (NEG) Ur Propoxyphene Screen Negative (NEG) Barbiturate Screen Negative (NEG) U Tricyclic Antidepress Negative (NEG) Phencyclidine Screen Negative (NEG) Amphetamines Screen Negative (NEG) U Methamphetamines Scrn Negative (NEG) Benzodiazepines Screen Positive H (NEG) Cocaine Screen Negative (NEG) U Marijuana (THC) Screen Negative (NEG) Serum Alcohol (0-10) mg/dL 12/24/16 12/24/16 12/24/16 Range/Units 06:35 06:35 09:05 WBC 8.33 (4.8-10.8) 10^3/uL RBC 3.79 L (4.20-5.40) 10^6/uL Hgb 10.8 L (12.0-16.0) g/dL Hct 33.1 L (37.0-47.0) % MCV 87.3 (81-99) FL MCH 28.5 (27-31) PG MCHC 32.6 L (33-37) g/dL RDW Std Deviation 42.6 (39-50) fL RDW Coeff of Eugenia 13.8 (11.5-14.5) % Plt Count 210 (140-350) 10*3/uL MPV 10.7 (7.4-12.2) FL Neutrophils % (Manual) 72 (50-80) % Band Neutrophils % 0 (0-10) % Lymphocytes % (Manual) 20 (10-50) % Monocytes % (Manual) 4 (0-12) % Eosinophils % (Manual) 4 (0-8) % Basophils % (Manual) 0 (0-1) % Metamyelocytes % Not Reportable Myelocytes % Not Reportable Promyelocytes % Not Reportable Blast Cells Not Reportable WBC Morphology Comment Normal morphology (NORM) Plt Morphology Comment Normal morphology (NORM) RBC Morph Comment Normal morphology (NORM) VBG pH (7.32-7.42) VBG pCO2 (45-55) mmHg VBG HCO3 (22-26) mmol/L VBG Base Excess (-2-2) MMOL/L Sodium 139 (135-145) meq/L Potassium 3.9 (3.8-5.2) meq/L Chloride 100 (98-112) meq/L Carbon Dioxide 29 (23-33) meq/L Anion Gap 10 (5-20) BUN 20 (7-22) mg/dL Creatinine 0.9 (0.50-1.20) mg/dL Estimated GFR > 60 (>60 ml/min/1.73m(2)) BUN/Creatinine Ratio 22.22 H (6-20) Glucose 262 H (78-110) mg/dL Calculated Osmolality 299.0 H (267-292) mOsm/kg Lactic Acid (0.70-2.10) MMOL/L Calcium 8.3 L (8.7-10.7) mg/dL Magnesium (1.6-2.4) mg/dL Total Bilirubin 0.7 (0.3-1.2) mg/dL AST 77 H (8-39) IU/L ALT 47 (9-52) IU/L Alkaline Phosphatase 112 (38-126) IU/L Total Creatine Kinase 2747 H (30-136) IU/L C-Reactive Protein (0.0-0.9) mg/dL Total Protein 6.0 L (6.1-8.0) g/dL Albumin 3.2 L (3.5-4.8) g/dL Globulin 2.8 (2.50-4.10) g/dL Albumin/Globulin Ratio 1.10 L (1.3-2.0) mg/g TSH (0.2700-4.2000) uIU/mL Ur Collection Type Urine Color Urine Clarity (CLEAR) Urine pH (5.0-8.5) Ur Specific Parker (1.005-1.030) U Specif Grav (Refrac) Urine Protein (NEG) mg/dl Urine Glucose (UA) (NEG) mg/dL Urine Ketones (NEG) Urine Occult Blood (NEG) Urine Nitrate (NEG) Urine Bilirubin (NEG) Urine Urobilinogen (0.2) mg/dL Ur Leukocyte Esterase (NEG) Urine RBC (NONE) /hpf Urine WBC (NONE) Ur Squamous Epith Cells (NONE) Ur Renal Epithelial Cell (NONE) Urine Crystals Urine Bacteria (NONE) Urine Casts Urine Mucus (NONE) Urine Trichomonas (NONE) Urine Yeast (NONE) Urine Opiates Screen (NEG) Ur Buprenorphine (NEG) Ur Oxycodone Screen (NEG) Urine Methadone Screen (NEG) Ur Propoxyphene Screen (NEG) Barbiturate Screen (NEG) U Tricyclic Antidepress (NEG) Phencyclidine Screen (NEG) Amphetamines Screen (NEG) U Methamphetamines Scrn (NEG) Benzodiazepines Screen (NEG) Cocaine Screen (NEG) U Marijuana (THC) Screen (NEG) Serum Alcohol (0-10) mg/dL 12/25/16 Range/Units 06:15 WBC (4.8-10.8) 10^3/uL RBC (4.20-5.40) 10^6/uL Hgb (12.0-16.0) g/dL Hct (37.0-47.0) % MCV (81-99) FL MCH (27-31) PG MCHC (33-37) g/dL RDW Std Deviation (39-50) fL RDW Coeff of Eugenia (11.5-14.5) % Plt Count (140-350) 10*3/uL MPV (7.4-12.2) FL Neutrophils % (Manual) (50-80) % Band Neutrophils % (0-10) % Lymphocytes % (Manual) (10-50) % Monocytes % (Manual) (0-12) % Eosinophils % (Manual) (0-8) % Basophils % (Manual) (0-1) % Metamyelocytes % Myelocytes % Promyelocytes % Blast Cells WBC Morphology Comment (NORM) Plt Morphology Comment (NORM) RBC Morph Comment (NORM) VBG pH (7.32-7.42) VBG pCO2 (45-55) mmHg VBG HCO3 (22-26) mmol/L VBG Base Excess (-2-2) MMOL/L Sodium 138 (135-145) meq/L Potassium 4.0 (3.8-5.2) meq/L Chloride 101 (98-112) meq/L Carbon Dioxide 26 (23-33) meq/L Anion Gap 11 (5-20) BUN 11 (7-22) mg/dL Creatinine 0.6 (0.50-1.20) mg/dL Estimated GFR > 60 (>60 ml/min/1.73m(2)) BUN/Creatinine Ratio 18.33 (6-20) Glucose 262 H (78-110) mg/dL Calculated Osmolality 293.0 H (267-292) mOsm/kg Lactic Acid (0.70-2.10) MMOL/L Calcium 8.1 L (8.7-10.7) mg/dL Magnesium (1.6-2.4) mg/dL Total Bilirubin 0.6 (0.3-1.2) mg/dL AST 63 H (8-39) IU/L ALT 42 (9-52) IU/L Alkaline Phosphatase 95 (38-126) IU/L Total Creatine Kinase 1272 H (30-136) IU/L C-Reactive Protein (0.0-0.9) mg/dL Total Protein 5.6 L (6.1-8.0) g/dL Albumin 2.9 L (3.5-4.8) g/dL Globulin 2.7 (2.50-4.10) g/dL Albumin/Globulin Ratio 1.00 L (1.3-2.0) mg/g TSH (0.2700-4.2000) uIU/mL Ur Collection Type Urine Color Urine Clarity (CLEAR) Urine pH (5.0-8.5) Ur Specific Parker (1.005-1.030) U Specif Grav (Refrac) Urine Protein (NEG) mg/dl Urine Glucose (UA) (NEG) mg/dL Urine Ketones (NEG) Urine Occult Blood (NEG) Urine Nitrate (NEG) Urine Bilirubin (NEG) Urine Urobilinogen (0.2) mg/dL Ur Leukocyte Esterase (NEG) Urine RBC (NONE) /hpf Urine WBC (NONE) Ur Squamous Epith Cells (NONE) Ur Renal Epithelial Cell (NONE) Urine Crystals Urine Bacteria (NONE) Urine Casts Urine Mucus (NONE) Urine Trichomonas (NONE) Urine Yeast (NONE) Urine Opiates Screen (NEG) Ur Buprenorphine (NEG) Ur Oxycodone Screen (NEG) Urine Methadone Screen (NEG) Ur Propoxyphene Screen (NEG) Barbiturate Screen (NEG) U Tricyclic Antidepress (NEG) Phencyclidine Screen (NEG) Amphetamines Screen (NEG) U Methamphetamines Scrn (NEG) Benzodiazepines Screen (NEG) Cocaine Screen (NEG) U Marijuana (THC) Screen (NEG) Serum Alcohol (0-10) mg/dL History and Physical pertinent to Admission: Course of Hospitalization: Is a very nice 56-year-old female with past medical history of diabetes was brought to the ER because of somnolence and lethargy she was found to have a urinary tract infection, acute renal failure, and rhabdomyolysis. She did quite well throughout her hospital stay was treated with IV fluids with improvement of her rhabdomyolysis and normalization of her acute kidney injury. Ultrasound revealed no obstruction. Also her sugars were in the 400 range we treated this with insulin with also improvement of her sugars from her diabetes. There was some swelling of the left arm last night we did an ultrasound of her upper extremity which revealed no blood, I discussed the case with Dr. haley richter just some soft tissue edema which today is improved and resolved. I spoke to the lab patient has gram-positive cocci in preliminary reading the lab that looks that the cultures come units probably group B strep patient has anaphylaxis to penicillin I discussed with infectious disease we were going to give her Levaquin 750 by mouth for 5 more days. She will be discharged home on her usual medication. Patient is coherent and alert and oriented 3 no acute distress On the date of discharge, the patient was examined: Gen.: No acute distress, alert, nontoxic Heart: Regular rate and rhythm, no murmurs, clicks, gallops, or rubs Lungs: Clear to auscultation bilaterally, breathing is nonlabored Abdomen/GI: Normal tones on auscultation, soft, nontender, nondistended Musculoskeletal/extremities: No clubbing, cyanosis, or edema Vitals reviewed and are listed below Assessment and Plan: 1. As per discharge assessments above 2. Disposition: Home 3. Condition on discharge, stable and improved. 4. Diet: Diabetic diet 5. Activities: resume normal activities 6. Follow-Up: 1. PCP in [place] 2. 7. Medications at the Time of Discharge: Home Medications Medication Instructions Recorded Confirmed Type Aspirin [Adult Low Dose Aspirin EC] 162 mg PO DAILY 02/19/12 12/23/16 History Famotidine 20 mg PO BID 02/19/12 12/23/16 History Gabapentin 600 mg PO TID 02/19/12 12/23/16 History Glipizide [Glipizide ER] 2.5 mg PO DAILY 02/19/12 12/23/16 History Insulin Aspart Prot/Insuln Asp 100 unit SQ .WITH MEALS SLIDING 02/19/12 History [Novolog Mix 70-30 Vial] Insulin Glargine,Hum.rec.anlog 10 unit SQ .QAM 02/19/12 12/23/16 History [Lantus] Insulin Glargine,Hum.rec.anlog 55 unit SQ .QHS 02/19/12 12/23/16 History [Lantus] Lisinopril 40 mg PO BID 02/19/12 12/23/16 History Metformin HCl [Metformin HCl ER] 1,000 mg PO BID 02/19/12 12/23/16 History Metoclopramide HCl [Reglan] 10 mg PO DAILY 02/19/12 12/23/16 History Nifedipine [Nifedipine ER] 60 mg PO DAILY 02/19/12 12/23/16 History Nitroglycerin 2.5 mg PO BID 02/19/12 12/23/16 History Nitroglycerin [Nitrostat] 0.4 mg SL PRN PRN 02/19/12 12/23/16 History Pantoprazole Sodium [Protonix] 1 tab PO DAILY 01/14/13 12/23/16 History traZODone Tab [Desyrel Tab] 1 - 3 tab PO HS 01/14/13 12/23/16 History Buspirone HCl [Buspar] 10 mg PO BID 12/23/16 12/23/16 History Clonidine HCl 0.1 mg PO DAILY 12/23/16 12/23/16 History Furosemide [Lasix] 40 mg PO DAILY 12/23/16 12/23/16 History Meclizine HCl [Antivert] 25 mg PO PRN 12/23/16 12/23/16 History Potassium Chloride 10 meq PO DAILY 12/23/16 12/23/16 History Sumatriptan Succinate [Imitrex] 25 mg PO PRN 12/23/16 12/23/16 History Levofloxacin Tab [Levaquin Tab] 750 mg PO DAILY #5 tab 12/25/16 Rx Metoprolol Succinate [Toprol XL] 50 mg PO DAILY tab 12/25/16 Rx 3 Generic Name Dose Route Start Last Admin Trade Name Freq PRN Reason Stop Dose Admin Apixaban 10 mg 12/24/16 22:00 12/25/16 08:18 Eliquis PO 12/31/16 09:01 10 mg BID MARIBELL Administration Aspirin 162 mg 12/24/16 09:00 12/25/16 08:17 Aspirin Ec PO 162 mg DAILY MARIBELL Administration Buspirone HCl 10 mg 12/23/16 21:00 12/25/16 08:20 Buspirone Hcl PO 10 mg BID MARIBELL Administration Clonidine HCl 0.1 mg 12/24/16 09:00 12/25/16 08:19 Catapres PO 0.1 mg DAILY MARIBELL Administration Dextrose 30 - 40 ml 12/23/16 14:55 Dextrose 50% Inj IVP Q15M PRN BG < 70 unable to take oral Furosemide 40 mg 12/25/16 09:00 12/25/16 08:29 Lasix PO 40 mg DAILY@0700 MARIBELL Administration Glucagon 1 mg 12/23/16 14:55 Glucagen IM ONCE PRN BG < 70 NPO & NO IV Glucose 15 - 20 gm 12/23/16 14:55 Insta-Glucose Gel PO Q15M PRN BG < 70 Pantoprazole Sodium 40 mg/ 10 mls @ 5 mls/min 12/24/16 09:00 12/25/16 08:16 Sodium Chloride IVP 5 mls/min DAILY MARIBELL Administration Sodium Chloride 1,000 mls @ 75 mls/hr 12/24/16 12:30 12/25/16 05:17 Normal Saline PRIMARY IV 75 mls/hr .[id number] MARIBELL Administration Insulin Human Lispro 0 - 14 unit 12/23/16 16:00 12/25/16 08:10 Humalog Flexpen Inj SUBCUT 12 unit AC HS MARIBELL Administration Protocol Levofloxacin 750 mg 12/26/16 09:00 Levaquin Tab PO DAILY MARIBELL Lidocaine HCl 0.5 ml 12/23/16 14:55 Lidocaine Buffered Inj SUBD ONCE PRN IV Starts Lisinopril 40 mg 12/25/16 09:00 12/25/16 08:29 Prinivil PO 40 mg BID MARIBELL Administration Metoprolol Succinate 50 mg 12/24/16 18:00 12/25/16 08:19 Toprol Xl PO 50 mg DAILY MARIBELL Administration Nifedipine 60 mg 12/24/16 09:00 12/25/16 08:18 Nifedical Xl PO 60 mg DAILY MARIBELL Administration Nitroglycerin 2.5 mg 12/23/16 21:00 12/25/16 08:19 Nitro-Bid Er PO 2.5 mg BID MARIBELL Administration Non-Formulary Medication 1 each 12/23/16 14:55 Insulin Sliding Scale Protocol SUBCUT .Per Protocol PRN Per Sliding Scale Protocol Sodium Chloride 5 - 20 ml 12/23/16 14:55 12/23/16 17:18 Saline Flush IVP 10 ml BID PRN Administration Flush 8. Time, care, counseling and coordination of care for this discharge is greater than 30 minutes. Exam - Vitals Vital Signs: Vital Signs Temperature 97.9 F Temperature Source Oral Pulse Rate [Apical] 92 Pulse Rate [Pulse Oximeter] 101 Pulse Rate 124 Respiratory Rate 19 Blood Pressure [Right Arm] 148/56 Blood Pressure [Left Arm] 125/56 Pulse Ox 98 Oxygen Flow Rate 3 Oxygen Delivery Method Nasal Cannula Height 5 ft 6 in Weight 209 lb 3.2 oz Patient Problems - Patient Problem List (1) Confusion Current Visit: Yes Status: Acute Code(s): R41.0 - Disorientation, unspecified Category: Medical (2) Dehydration Current Visit: Yes Status: Acute Code(s): E86.0 - Dehydration Category: Medical (3) Diabetes mellitus Current Visit: Yes Status: Acute Code(s): E11.9 - Type 2 diabetes mellitus without complications Category: Medical (4) Renal failure, acute Current Visit: Yes Status: Acute Code(s): N17.9 - Acute kidney failure, unspecified Category: Medical (5) Rhabdomyolysis Current Visit: Yes Status: Acute Code(s): M62.82 - Rhabdomyolysis Category : Medical (6) Urinary tract infection Current Visit: Yes Status: Acute Code(s): N39.0 - Urinary tract infection, site not specified Category: Medical
== END 2016-12-25 11:17 | disposition home or self-care (01) | DRG 690 ==
LOC: ER 11:30 → MED/SURG 14:17
PROVIDERS: ADMIT Internal Medicine; ATTEND Internal Medicine